=== PATIENT | female | born 1935 | race Caucasian/White ===

== ENCOUNTER 2024-03-03 11:06 | Inpatient (IN) | payer MEDICARE ==
[~2024-03-03] VITALS: Ht 165.1 cm; Wt 45.0 kg
[2024-03-03] MEDS ORDERED: IBLOOD GLUCOSE TEST STRIP 1 EA TEST VI ONE (11:30)
[2024-03-03 12:03] LABS: BASOPHILS 0.4 % (0-2); HEMATOCRIT 42.3 % (35.0-50.0); HEMOGLOBIN 14.2 g/dL (12.0-18.0); LYMPHOCYTES 7.3 % (24-44); MCH 29.4 (27-36); MCHC 33.6 g/dl (30-36); MCV 87.5 fl (81-99); MONOCYTES 6.2 % (0-12); NEUTROPHILS 86.1 % (39-80); PLATELET COUNT 222 K/uL (140-440); RBC 4.83 M/ul (4.3-5.7); RDW 13.6 (10.5-15.0)
[2024-03-03 12:18] LABS: BILIRUBIN, URINE NEGATIVE (negative); BLOOD/HGB, URINE TRACE-I (Negative); KETONE, URINE SMALL (Negative); LEUK ESTERASE, URINE NEGATIVE (negative); NITRITE, URINE NEGATIVE (negative)
[2024-03-03 12:20] LABS: ALBUMIN 3.9 g/dL (3.4-5.0); ALBUMIN/GLOBULIN RATIO 1.11 (1.1-2.4); ALCOHOL, MEDICAL <3 ng/dL (<3); ALKALINE PHOSPHATASE 87 U/L (46-116); ALT (SGPT) 19 U/L (14-59); ANION GAP 15.5 (7-21); AST (SGOT) 19 U/L (15-37); BILIRUBIN, TOTAL 0.9 ng/dL (0.2-1.0); BUN/CREATININE RATIO 18.75 (6.0-28.6); CALCIUM 8.9 mg/dL (8.5-10.1); CARBON DIOXIDE 28 mmol/L (21-32); CHLORIDE 99 mmol/L (98-107); GLOMERULAR FILTRATION RATE,EST 70 mL/min (>60); POTASSIUM 3.5 mmol/L (3.5-5.1); PROTEIN, TOTAL 7.4 g/dL (6.4-8.2); UREA NITROGEN 15 mg/dL (7-18)
[2024-03-03 12:29] LABS: BACTERIA, URINE NONE SEEN /hpf (negative); CASTS, URINE NONE SEEN \\lpf; CRYSTALS, URINE NONE SEEN (0-1+); EPITHELIAL CELLS, URINE SQUAMOUS 2+ /lpf (0-1+); WHITE BLOOD CELLS, URINE 0-1 /HPF (0-5)
[2024-03-03 12:30] LABS: COLLECTION TYPE, URINE CLEAN CATCH; REFLEX CULTURE, URINE No (No)
[2024-03-03] MEDS ORDERED: SODIUM CHLORIDE 0.9% 500 ML IV PRN ×2 (12:30→15:30)
[2024-03-03 12:39] LABS: AMPHETAMINES, URINE NEGATIVE (NEGATIVE); BARBITURATES, URINE NEGATIVE (NEGATIVE); BENZODIAZEPINE, URINE NEGATIVE (NEGATIVE); BUPRENORPHINE, URINE NEGATIVE (NEGATIVE); CANNABINOID, URINE NEGATIVE (NEGATIVE); COCAINE, URINE NEGATIVE (NEGATIVE); ECSTASY, URINE NEGATIVE (NEGATIVE); FENTANYL, URINE NEGATIVE (NEGATIVE); METHADONE, URINE NEGATIVE (NEGATIVE); OPIATES, URINE NEGATIVE (NEGATIVE); OXYCODONE, URINE NEGATIVE (NEGATIVE); PHENCYCLIDINE, URINE NEGATIVE (NEGATIVE)
[2024-03-03 14:13] LABS: INFLUENZA B NAA NEGATIVE (NEGATIVE); RESPIRATORY SYNCYTIAL VIR NAA NEGATIVE (NEGATIVE)
[2024-03-03 19:39] LABS: PH, VENOUS 7.448 (7.31-7.41)
[2024-03-03 20:28] LABS: GLUCOSE, CSF 114 mg/dL (40-70); PROTEIN, CSF 68 mg/dL (15-45)
[2024-03-03 20:53] LABS: CLARITY, CEREBROSPINAL FLUID CLEAR; COLOR, CEREBROSPINAL FLUID COLORLESS; RBC, CEREBROSPINAL FLUID 12; WBC, CEREBROSPINAL FLUID 4
[2024-03-03] MEDS ORDERED: ondansetron HCL 4 MG/2 ML VIAL IV PRN (22:45)
[2024-03-03] MEDS ORDERED: SODIUM CHLORIDE 0.9% 1,000 ML IV SCH (22:45)
[2024-03-03] MEDS ORDERED: ACETAMINOPHEN 325 MG TAB PO PRN (22:45)
[2024-03-03] MEDS ORDERED: AZITHROMYCIN/DEXTROSE 500 MG/250 ML BAG IV ONE (23:00)
[2024-03-04 00:17] VITALS: BP 143/110
[2024-03-04] MEDS ORDERED: LIDOCAINE 2% VISCOUS 6 ML SYR TOP ONE (01:00)
[2024-03-04 05:43] VITALS: BP 145/76
[2024-03-04 05:44] LABS: BASOPHILS 0.5 % (0-2); EOSINOPHILS 0.3 % (0-6); HEMATOCRIT 39.3 % (35.0-50.0); HEMOGLOBIN 13.2 g/dL (12.0-18.0); LYMPHOCYTES 18.2 % (24-44); MCH 29.1 (27-36); MCHC 33.5 g/dl (30-36); MCV 86.9 fl (81-99); MONOCYTES 10.9 % (0-12); NEUTROPHILS 70.1 % (39-80); PLATELET COUNT 211 K/uL (140-440); RBC 4.52 M/ul (4.3-5.7); RDW 13.2 (10.5-15.0)
[2024-03-04 06:01] LABS: ALBUMIN/GLOBULIN RATIO 0.94 (1.1-2.4); ANION GAP 12.6 (7-21); BUN/CREATININE RATIO 12.9 (6.0-28.6); CALCIUM 7.4 mg/dL (8.5-10.1); CREATININE, SERUM 0.62 mg/dL (0.55-1.02); MAGNESIUM 1.1 mg/dL (1.8-2.4); POTASSIUM 2.6 mmol/L (3.5-5.1); PROTEIN, TOTAL 6.2 g/dL (6.4-8.2)
[2024-03-04] MEDS ORDERED: MAGNESIUM SULFATE 4 GM/100 ML BAG IV ONE (07:00)
[2024-03-04] MEDS ORDERED: POTASSIUM CHLORIDE 10 MEQ TABCR PO ONE (07:00)
[2024-03-04] MEDS ORDERED: ENOXAPARIN SODIUM 40 MG/0.4 ML SYR SUB-Q SCH (09:00)
[2024-03-04] MEDS ORDERED: ENOXAPARIN SODIUM 30 MG/0.3 ML SYR SUB-Q SCH (09:00)
[2024-03-04] MEDS ORDERED: CEFTRIAXONE/SODIUM CHLORIDE 1 GM/100 ML PIGGYBACK IV SCH (09:00)
[2024-03-04] MEDS ORDERED: METOPROLOL TART25 MG PO (09:38)
[2024-03-04] MEDS ORDERED: DORZOLAMIDE-TIM10 ML OU (09:39)
[2024-03-04] MEDS ORDERED: LATANOPROST2.5 ML OU (09:39)
[2024-03-04] MEDS ORDERED: GLIPIZIDE5 MG PO (09:40)
[2024-03-04] MEDS ORDERED: LEVOTHYROXINE75 MCG PO (09:40)
[2024-03-04] MEDS ORDERED: LISINOPRIL20 MG PO (09:40)
[2024-03-04 09:41] VITALS: BP 145/67
[2024-03-04] MEDS ORDERED: LEVETIRACETAM500 MG PO (09:41)
[2024-03-04] MEDS ORDERED: MEMANTINE HCL10 MG PO (09:41)
[2024-03-04] MEDS ORDERED: ATORVASTATIN CA20 MG PO (09:41)
[2024-03-04] MEDS ORDERED: AMLODIPINE BESY10 MG PO (09:41)
[2024-03-04] MEDS ORDERED: POTASSIUM CHLORIDE 40 MEQ,LIDOCAINE HCL 1% 40 MG in DEXTROSE 5% 500 ML IV SCH (10:00)
[2024-03-04] MEDS ORDERED: TYLENOL325 MG PO (11:34)
[2024-03-04] MEDS ORDERED: ASPERCREME85 GM TOP (11:34)
[2024-03-04] MEDS ORDERED: PHARMACY RENAL DOSE ADJUSTMENT 1 DOSE MISC PO SCH (12:00)
[2024-03-04] MEDS ORDERED: LEVOTHYROXINE SODIUM 75 MCG TAB PO SCH (12:58)
[2024-03-04] MEDS ORDERED: levETIRAcetam 500 MG TAB PO SCH (12:58)
[2024-03-04] MEDS ORDERED: METOPROLOL TARTRATE 25 MG TAB PO SCH (12:59)
[2024-03-04] MEDS ORDERED: levETIRAcetam 500 MG/5 ML VIAL IV SCH (13:35)
[2024-03-04] MEDS ORDERED: ACETAMINOPHEN 650 MG SUPP PR ONE (13:45)
[2024-03-04 13:50] VITALS: BP 160/74
[2024-03-04] MEDS ORDERED: ACETAMINOPHEN 325 MG TAB PO PRN (14:15)
[2024-03-04 17:48] VITALS: BP 143/71
[2024-03-04 19:50] VITALS: BP 132/75
[2024-03-04] MEDS ORDERED: DEXTROSE 5% 1,000 ML IV PRN (22:00)
[2024-03-04] MEDS ORDERED: IBLOOD GLUCOSE TEST STRIP 1 EA TEST XX PRN (22:00)
[2024-03-04] MEDS ORDERED: DEXTROSE 50% 50 ML SYR IV PRN ×2 (22:00)
[2024-03-04] MEDS ORDERED: GLUCAGON,HUMAN RECOMBINANT 1 MG/ML VIAL SUB-Q PRN (22:00)
[2024-03-04] MEDS ORDERED: INSULIN LISPRO 100 UNIT/ML ML SUB-Q SCH (22:15)
[2024-03-04] MEDS ORDERED: LACTATED RINGER'S 1,000 ML IV SCH (22:15)
[2024-03-04] MEDS ORDERED: IBLOOD GLUCOSE TEST STRIP 1 EA TEST XX SCH (22:15)
[2024-03-05 01:44] VITALS: BP 120/51
[2024-03-05 05:35] VITALS: BP 127/58
[2024-03-05 05:41] LABS: BASOPHILS 0.7 % (0-2); EOSINOPHILS 1.1 % (0-6); HEMATOCRIT 36.5 % (35.0-50.0); HEMOGLOBIN 12.3 g/dL (12.0-18.0); LYMPHOCYTES 16.6 % (24-44); MCH 29.4 (27-36); MCHC 33.6 g/dl (30-36); MCV 87.4 fl (81-99); MONOCYTES 9.4 % (0-12); NEUTROPHILS 72.2 % (39-80); PLATELET COUNT 168 K/uL (140-440); RBC 4.17 M/ul (4.3-5.7); RDW 13.3 (10.5-15.0)
[2024-03-05 05:56] LABS: ANION GAP 9.8 (7-21); BUN/CREATININE RATIO 12.5 (6.0-28.6); CALCIUM 7.6 mg/dL (8.5-10.1); CREATININE, SERUM 0.56 mg/dL (0.55-1.02); POTASSIUM 3.8 mmol/L (3.5-5.1)
[2024-03-05] MEDS ORDERED: ENOXAPARIN SODIUM 40 MG/0.4 ML SYR SUB-Q SCH (09:00)
[2024-03-05 09:45] LABS: STREPTOCOCCUS PNEUMONIAE AG,UR Negative (Negative)
[2024-03-05] MEDS ORDERED: ATORVASTATIN 20 MG TAB PO SCH (12:00)
[2024-03-05 13:38] VITALS: BP 143/70
[2024-03-05 14:19] VITALS: BP 143/70
[2024-03-05 18:21] VITALS: BP 138/68
--- NOTE | 2024-03-05 18:27 | EKG ---
[facility] [address] [place], [place] [address] Signed Sinus tachycardia Nonspecific ST and T wave abnormality Abnormal ECG No previous ECGs available Confirmed by Nick Godwin MD ([id number]) on 03/05/2024 6:27:45 PM Electronically Signed By: NICK GODWIN 03/05/24 1827 PATIENT NAME: ERIK LEIJAKALANI RUFF Electrocardiogram DATE OF : [birth year] PHYSICIAN: NICK GODWIN REPORT #: [id number] REPORT IS CONFIDENTIAL AND NOT TO BE RELEASED WITHOUT AUTHORIZATION
[2024-03-05 20:20] VITALS: BP 122/60
[2024-03-06] VITALS (7 sets, daily range): BP systolic 137–179; BP diastolic 69–92
[2024-03-06 05:43] LABS: BASOPHILS 0.5 % (0-2); EOSINOPHILS 4.1 % (0-6); HEMATOCRIT 36.2 % (35.0-50.0); HEMOGLOBIN 12.1 g/dL (12.0-18.0); LYMPHOCYTES 20.7 % (24-44); MCH 29.6 (27-36); MCHC 33.3 g/dl (30-36); MCV 88.7 fl (81-99); MONOCYTES 10.4 % (0-12); NEUTROPHILS 64.3 % (39-80); PLATELET COUNT 168 K/uL (140-440); RBC 4.08 M/ul (4.3-5.7); RDW 13.4 (10.5-15.0)
[2024-03-06 05:55] LABS: ANION GAP 12.4 (7-21); CREATININE, SERUM 0.5 mg/dL (0.55-1.02); MAGNESIUM 1.5 mg/dL (1.8-2.4); POTASSIUM 3.4 mmol/L (3.5-5.1)
[2024-03-06] MEDS ORDERED: levETIRAcetam 500 MG TAB PO SCH (09:00)
[2024-03-07 04:41] VITALS: BP 152/88
[2024-03-07 10:13] VITALS: BP 140/96
[2024-03-07] MEDS ORDERED: AZITHROMYCIN250 MG PO (11:27)
[2024-03-07] MEDS ORDERED: LIDODERM1 EACH TOP (11:29)
[2024-03-07 13:04] VITALS: BP 183/105
== END 2024-03-07 14:35 | disposition home or self-care (01) | DRG 884 ==
LOC: ED 11:06 → MS 22:52
PROVIDERS: Emergency Medicine; Family Medicine; ADMIT Internal Medicine; ATTEND Internal Medicine
DX: F03.90 Unspecified dementia, unspecified severity, without behavioral disturbance, psychotic disturbance, mood disturbance, and anxiety (principal); I24.89 Other forms of acute ischemic heart disease; E03.9 Hypothyroidism, unspecified; G40.909 Epilepsy, unspecified, not intractable, without status epilepticus; I10 Essential (primary) hypertension; E78.5 Hyperlipidemia, unspecified; K21.9 Gastro-esophageal reflux disease without esophagitis; R09.02 Hypoxemia; Z88.2 Allergy status to sulfonamides
CPT/HCPCS: 36415; 70450; 70551; 71045; 71260; 74177; 80048; 80053; 80307; 81001; 82803; 82945; 83735; 83880; 84157; 84484; 85025; 85651; 86140; 87502; 87899; 89051; 92526; 92610; 93005; 93010; 93306; 94762; 97112; 97116; 97162; 97166; 97530; 97535; A9270; G0480; J0456; J0696; J1650; J1815; J1953; J3475; J3480; J3490; J7030; J7040; J7060; J7121; Q9967; U0002